=== PATIENT | female | born 1995 | race Caucasian/White ===

== ENCOUNTER 2017-05-26 21:15 | Emergency (ER) | payer BC ==
[2017-05-26] MEDS ORDERED: Albuterol 2.5 MG/3 ML NEB.SOL* (0.083%) INH ONE (21:44)
[2017-05-26] MEDS ORDERED: Albuterol HFA INHALER* 8 gm MDI INH ONE (22:25)
--- NOTE | 2017-05-26 22:25 | ED ---
Marry Marquez Rebecca, scribed for Hermilo Jarvis MD on 05/26/17 at 2145 . Asthma - HPI Summary HPI Summary: Pt is a 22 y/o F who presents to ED c/o "asthma attack" that began 30 minutes ago. Sx aggravated by recent illness, alleviated by nothing. Last asthma attack was a few days ago and current sx are similar to prior asthma attacks. Pt reports she lost her rescue inhaler today. PMHx asthma. - History of Current Complaint Chief Complaint: EDAsthma Stated Complaint: ASTHMA ATTACK Time Seen by Provider: 05/26/17 21:40 Hx Obtained From: Patient Onset/Duration: Lasting Minutes - Started 30 minutes [employer], Still Present Current Severity: None Pain Intensity: 0 Pain Scale Used: 0-10 Numeric Aggravating Symptoms: Other: - Recent illness Alleviating Symptoms: Nothing Related History: Similar Episode/Dx as - Prior asthma attacks - Allergy/Home Medications Allergies/Adverse Reactions: Allergies Allergy/AdvReac Type Severity Reaction Status Date / Time Eggs or Egg-derived Products Allergy Anaphylatic Verified 05/26/17 21:21 Shock Tree Nuts Allergy Anaphylatic Verified 05/26/17 21:21 Shock PMH/Surg Hx/FS Hx/Imm Hx Respiratory History: Reports: Hx Asthma Psychiatric History: Reports: Hx Bipolar Disorder Infectious Disease History: No Infectious Disease History: Denies: Traveled Outside the [place] in Last 30 Days - Family History Known Family History: Positive: Hypertension - Social History Alcohol Use: None Substance Use Type: Reports: None Smoking Status (MU): Never Smoked Tobacco Review of Systems Negative: Fever Positive: Other - "asthma attack" All Other Systems Reviewed And Are Negative: Yes Physical Exam Triage Information Reviewed: Yes Vital Signs On Initial Exam: Initial Vitals Temp Pulse Resp BP Pulse Ox 97.3 F 83 24 132/102 100 05/26/17 21:16 05/26/17 21:16 05/26/17 21:16 05/26/17 21:16 05/26/17 21:16 Vital Signs Reviewed: Yes Appearance: Positive: Well-Appearing, No Pain Distress Skin: Positive: Warm Head/Face: Positive: Normal Head/Face Inspection Eyes: Positive: SEAN ENT: Positive: Hearing grossly normal Neck: Positive: Supple Respiratory/Lung Sounds: Positive: Breath Sounds Present, Wheezes - scatterd bilat exp with prolonged expiration Cardiovascular: Positive: RRR Abdomen Description: Positive: Nontender, Soft Bowel Sounds: Positive: Present Musculoskeletal: Positive: Strength/ROM Intact Neurological: Positive: Alert, Oriented to Person Place, Time Diagnostics - Vital Signs Vital Signs Temp Pulse Resp BP Pulse Ox 05/26/17 21:19 97.3 F 83 24 132/102 100 05/26/17 21:16 97.3 F 83 24 132/102 100 - Laboratory Lab Statement: Any lab studies that have been ordered have been reviewed, and results considered in the medical decision making process. Re-Evaluation - Re-Evaluation First Eval Re-Evaluation Time: 22:28 Change: Improved Asthma Course/Dx - Course Assessment/Plan: Pt is a 22 y/o F who presents to ED c/o "asthma attack" that began 30 minutes ago. Sx aggravated by recent illness, alleviated by nothing. Last asthma attack was a few days ago and current sx are similar to prior asthma attacks. Pt reports she lost her rescue inhaler today. PMHx asthma. In the ED course, pt was administered Ventolin which improved sx. She will be D/C to home with Dx of asthma and a follow up with her PCP. She understands and agrees. Elevated BP noted and advised to f/u with PCP. - Diagnoses Provider Diagnoses: Asthma Discharge - Discharge Plan Condition: Stable Disposition: HOME Patient Education Materials: Asthma (ED) Referrals: [facility] [place] [facility] [place]] - 3 Days Additional Instructions: Return to ED for any returning or worsening of symptoms. The documentation as recorded by the Marry العلي Rebecca accurately reflects the service I personally performed and the decisions made by me, Hermilo Jarvis MD.
[2017-05-26 22:57] VITALS: BP 136/89
== END 2017-05-26 23:10 | disposition home or self-care (01) ==
LOC: ED 21:15
DX: J45.909 Unspecified asthma, uncomplicated (principal); F31.9 Bipolar disorder, unspecified
CPT/HCPCS: 94640; 99282; A9270-GY